=== PATIENT | female | born 1975 | race Caucasian/White ===

== ENCOUNTER 2018-06-03 03:51 | Emergency (ER) | payer MEDICAID ==
[~2018-06-03] VITALS: Ht 157.5 cm; Wt 70.9 kg
[~2018-06-03 03:51] MED LIST: FERR-89 PO; NORE1TAB PO
[2018-06-03] MEDS ORDERED: IBUP-1506 PO (03:57)
[2018-06-03 04:57] VITALS: BP 132/70
== END 2018-06-03 05:52 | disposition home or self-care (01) ==
LOC: EMS 03:52
DX: S23.3XXA Sprain of ligaments of thoracic spine, initial encounter (principal); M62.838 Other muscle spasm; R51 Headache; Z79.1 Long term (current) use of non-steroidal anti-inflammatories (NSAID); X58.XXXA Exposure to other specified factors, initial encounter; Y93.89 Activity, other specified; Y92.89 Other specified places as the place of occurrence of the external cause; Y99.8 Other external cause status
CPT/HCPCS: 99283